=== PATIENT | male | born 1995 | race Caucasian/White ===

== ENCOUNTER 2018-07-24 15:44 | Emergency (ER) | payer OTHER ==
[2018-07-24] MEDS ORDERED: NS(*) 0.9% 1000 ML BAG 1,000 ML IV ONE (15:54)
--- NOTE | 2018-07-24 16:02 | ER Report ---
History and Physical Time Seen By MD: 16:02 HPI/VICKI CHIEF COMPLAINT: Near syncope HISTORY OF PRESENT ILLNESS: 22-year-old male patient presents to emergency room with complaint of near syncope. Patient states that he was working out for basketball. He was working out on a vertical climber and became really lightheaded and fell off of the climber. He states that he did not his head. He denies any loss of consciousness. Patient states that he has not felt well for approximately 7-10 days. He states that he's had no fever, however he is just felt very fatigued and not like himself. He states he is not taking any medication for this. He denies any nausea, vomiting or diarrhea. Patient states that today he has felt the worse. Patient states he does have some head pressure and light sensitivity. REVIEW OF SYSTEMS: Respiratory: No cough, no dyspnea. Cardiovascular: No chest pain, no palpitations. Gastrointestinal: No vomiting, no abdominal pain. Musculoskeletal: No back pain. Allergies: Coded Allergies: No Known Allergies (Verified Allergy, Unknown, 07/24/18) Home Meds Active Scripts Ondansetron 4 Mg Odt (ONDANSETRON 4 MG ODT) 4 Mg Tab.rapdis, 4 MG PO Q6H PRN for NAUSEA/VOMITING, #20 TAB Prov:JOHANNE DIEZ 07/24/18 Ketorolac Tromethamine (KETOROLAC TROMETHAMINE) 10 Mg Tab, 10 MG PO Q6H, #20 TAB Prov:JOHANNE DIEZ 07/24/18 Past Medical/Surgical History Patient denies any pertinent medical or surgical history. Reviewed Nurses Notes: Yes Constitutional Vital Sign - Last 24 Hours 07/24/18 07/24/18 07/24/18 07/24/18 15:44 16:03 16:05 16:11 Temp 98.1 Pulse 55 55 Resp 14 B/P (MAP) 142/89 (106) 142/89 130/83 (99) Pulse Ox 99 99 O2 Delivery Room Air 07/24/18 07/24/18 07/24/18 07/24/18 16:14 16:44 16:49 17:00 Pulse 54 54 53 Resp 15 18 13 B/P (MAP) 133/72 (92) Pulse Ox 97 99 96 07/24/18 07/24/18 07/24/1819 17:19 17:30 17:35 18:00 Pulse 60 55 Resp 16 12 B/P (MAP) 127/62 (83) 124/69 (87) Pulse Ox 93 94 07/24/18 07/24/18 07/24/18 07/24/18 18:10 18:15 18:30 18:35 Pulse 56 54 54 Resp 7 15 15 B/P (MAP) 133/74 (93) Pulse Ox 96 93 95 07/24/18 07/24/18 19:05 19:30 Pulse 50 Resp 10 B/P (MAP) 123/74 (90) Pulse Ox 92 Physical Exam General Appearance: The patient is alert, has no immediate need for airway protection and no current signs of toxicity. Respiratory: Chest is non tender, lungs are clear to auscultation. Cardiac: regular rate and rhythm Gastrointestinal: Abdomen is soft and non tender, no masses, bowel sounds normal. Musculoskeletal: Neck: Neck is supple and non tender. Extremities have full range of motion and are non tender. Skin: No rashes or lesions. DIFFERENTIAL DIAGNOSIS: After history and physical exam differential diagnosis was considered for syncope including but not limited to vasovagal syncope, arrhythmia, dehydration, and blood loss. Included in the differential is migraine. Medical Decision Making Data Points Result Diagram: 07/24/18 1614 07/24/18 1614 Laboratory Hematology Test 07/24/18 00:00 07/24/18 16:14 Amylase Level 47 U/L (0-110) Lipase 55 U/L (23-300) Red Blood Count 5.26 M/uL (4.00-5.60) Mean Corpuscular Volume 86.5 fL (80.0-96.0) Mean Corpuscular Hemoglobin 29.2 pg (26.0-33.0) Mean Corpuscular Hemoglobin Concent 33.7 g/dL (32.0-36.0) Red Cell Distribution Width 12.8 % (11.5-14.5) Mean Platelet Volume 8.4 fL (7.2-11.1) Neutrophils (%) (Auto) 79.1 % (39.4-72.5) Lymphocytes (%) (Auto) 13.0 % (17.6-49.6) Monocytes (%) (Auto) 7.0 % (4.1-12.4) Eosinophils (%) (Auto) 0.6 % (0.4-6.7) Basophils (%) (Auto) 0.3 % (0.3-1.4) Nucleated RBC Relative Count (auto) 0.0 /100WBC Neutrophils # (Auto) 6.3 K/uL (2.0-7.4) Lymphocytes # (Auto) 1.0 K/uL (1.3-3.6) Monocytes # (Auto) 0.6 K/uL (0.3-1.0) Eosinophils # (Auto) 0.0 K/uL (0.0-0.5) Basophils # (Auto) 0.0 K/uL (0.0-0.1) Nucleated RBC Absolute Count (auto) 0.00 K/uL Sodium Level 139 mmol/L (137-145) Potassium Level 4.1 mmol/L (3.5-5.0) Chloride Level 102 mmol/L (98-107) Carbon Dioxide Level 25 mmol/L (22-30) Blood Urea Nitrogen 13 mg/dl (9-21) Creatinine 1.10 mg/dl (0.66-1.25) Glomerular Filtration Rate Calc > 60.0 Random Glucose 86 mg/dl (75-110) Calcium Level 9.6 mg/dl (8.4-10.2) Total Bilirubin 2.0 mg/dl (0.2-1.3) Aspartate Amino Transf (AST/SGOT) 31 U/L (0-35) Alanine Aminotransferase (ALT/SGPT) 29 U/L (0-56) Alkaline Phosphatase 76 U/L (0-126) Troponin I < 0.012 ng/ml Total Protein 7.5 g/dl (6.3-8.2) Albumin 4.9 g/dl (3.5-5.0) Monoscreen Negative (NEGATIVE) Chemistry Test 07/24/18 00:00 07/24/18 16:14 Amylase Level 47 U/L (0-110) Lipase 55 U/L (23-300) White Blood Count 7.9 k/uL (4.5-11.0) Red Blood Count 5.26 M/uL (4.00-5.60) Hemoglobin 15.3 g/dL (14.0-18.0) Hematocrit 45.5 % (42.0-52.0) Mean Corpuscular Volume 86.5 fL (80.0-96.0) Mean Corpuscular Hemoglobin 29.2 pg (26.0-33.0) Mean Corpuscular Hemoglobin Concent 33.7 g/dL (32.0-36.0) Red Cell Distribution Width 12.8 % (11.5-14.5) Platelet Count 252 K/uL (150-450) Mean Platelet Volume 8.4 fL (7.2-11.1) Neutrophils (%) (Auto) 79.1 % (39.4-72.5) Lymphocytes (%) (Auto) 13.0 % (17.6-49.6) Monocytes (%) (Auto) 7.0 % (4.1-12.4) Eosinophils (%) (Auto) 0.6 % (0.4-6.7) Basophils (%) (Auto) 0.3 % (0.3-1.4) Nucleated RBC Relative Count (auto) 0.0 /100WBC Neutrophils # (Auto) 6.3 K/uL (2.0-7.4) Lymphocytes # (Auto) 1.0 K/uL (1.3-3.6) Monocytes # (Auto) 0.6 K/uL (0.3-1.0) Eosinophils # (Auto) 0.0 K/uL (0.0-0.5) Basophils # (Auto) 0.0 K/uL (0.0-0.1) Nucleated RBC Absolute Count (auto) 0.00 K/uL Glomerular Filtration Rate Calc > 60.0 Calcium Level 9.6 mg/dl (8.4-10.2) Total Bilirubin 2.0 mg/dl (0.2-1.3) Aspartate Amino Transf (AST/SGOT) 31 U/L (0-35) Alanine Aminotransferase (ALT/SGPT) 29 U/L (0-56) Alkaline Phosphatase 76 U/L (0-126) Troponin I < 0.012 ng/ml Total Protein 7.5 g/dl (6.3-8.2) Albumin 4.9 g/dl (3.5-5.0) Monoscreen Negative (NEGATIVE) EKG/Imaging EKG Interpretation 12 lead EKG: Rhythm: normal sinus rhythm with a ventricular rate of 66 bpm [place]: normal QRS: normal ST segments: normal Imaging EXAMINATION: Chest 2 Views HISTORY: Syncopal episode. Right upper quadrant pain. COMPARISON: None. FINDINGS: The lungs are clear. No focal consolidation or pleural fluid. No pneumothorax. Normal cardiomediastinal silhouette, with normal heart size and pulmonary vascularity. Visualized osseous structures are unremarkable. IMPRESSION: Negative chest. Report Dictated By: Amos Brian MD at 07/24/2018 5:56 PM Report E-Signed By: Amos Brian MD at 07/24/2018 5:57 PM EXAMINATION: CT abdomen and pelvis with IV contrast HISTORY: Epigastric abdominal pain. TECHNIQUE: Axial CT images of the abdomen and pelvis were obtained with IV contrast, with coronal and sagittal 2D reconstructed images. One of the following dose optimization techniques was utilized in the performance of this exam: Automated exposure control; adjustment of the mA and/or kV according to the patient's size; or use of an iterative reconstruc tion technique. Specific details can be referenced in the facility's radiology CT exam operational policy. Contrast: 75 mL of IV Isovue-370. COMPARISON: None. FINDINGS: Liver: Negative. Gallbladder and bile ducts: Negative. Spleen: Negative. Pancreas: Negative. Adrenal glands: Negative. Kidneys: Negative. No hydronephrosis or urinary calculi. Bowel and peritoneum: The small bowel and colon are normal in caliber, without evidence of obstruction or any focal inflammatory process. The appendix is not well-visualized, but without any suspicious inflammatory changes noted adjacent to the cecal base. Pelvic structures: Negative. Lymph node assessment: Negative. Vessels: Negative. Musculoskeletal: Negative. Body wall: Negative. Lung bases: Negative. IMPRESSION: No CT evidence of acute intra-abdominal pathology. No specific source of abdominal pain is identified. Report Dictated By: Amos Brian MD at 07/24/2018 6:02 PM Report E-Signed By: Amos Brian MD at 07/24/2018 6:[address] OF THE BRAIN WITHOUT CONTRAST HISTORY: Syncope PROCEDURE: 3.0 mm contiguous axial sections were performed through the brain. Sagittal and coronal reformats were submitted. COMPARISON: None FINDINGS: BRAIN: Brain and intracranial structures: There is no mass lesion, hemorrhage or acute infarct. The ventricles are normal in size without midline shift. Sulcal definition is normal, and the basilar cisterns are well defined Orbits (included portions): Normal. Scalp: Normal. Skull: Normal. Paranasal sinuses and mastoid air cells (included portions): Minimal left maxillary mucosal thickening. IMPRESSION: No evidence of acute intracranial abnormality. One of the following dose optimization techniques was utilized in the performance of this exam: Automated exposure control; adjustment of the mA and/or kV according to the patient's size; or use of an iterative reconstruction technique. Specific details can be referenced in the facility's radiology CT exam operational policy. Report Dictated By: Sienna Paz MD at 07/24/2018 4:47 PM Report E-Signed By: Sienna Paz MD at 07/24/2018 4:52 PM ED Course/Re-evaluation ED Course Patient was admitted to an exam room, history and physical were obtained. Differential diagnoses were considered. On examination lungs are clear, heart was regular, abdomen soft nontender. EKG was done which showed a normal sinus rhythm, CBC, CMP, troponin, chest x-ray, CT scan of the head were done. Lab results and imaging results were negative. Patient did have some tenderness to palpation in the epigastric region. With a syncopal episode we did opt to go ahead and do a CT scan of the abdomen and pelvis today show there is no dilation or problems with the descending aorta. The results were negative. I discussed findings with patient. With him having photophobia and head pressure I do have concerns about possible migraine. Patient was treated with 15 mg of Toradol, 30 mg of Norflex, 12.5 mg of Phenergan and 25 mg of Benadryl. On reevaluation patient states that he feels that the head pressure significantly better. He denies any nausea or vomiting. He states he does feel ready to go home and rest. I do have concerns that this could very well be a viral syndrome and would like him to follow-up with [facility] on or Monday this week. Patient verbalized understanding and agreement with plan. Decision to Disposition Date: Jul 24, 2018 Decision to Disposition Time: 19:35 Depart Departure Latest Vital Signs Vital Signs Date Time Temp Pulse Resp B/P (MAP) Pulse Ox O2 Delivery O2 Flow Rate FiO2 07/24/18 19:30 123/74 (90) 07/24/18 19:05 50 10 92 07/24/18 16:05 98.1 Room Air Impression: Primary Impression: Migraine Additional Impression: Viral syndrome Condition: Improved Disposition: HOME OR SELF-CARE New Scripts Ondansetron 4 Mg Odt (ONDANSETRON 4 MG ODT) 4 Mg Tab.rapdis 4 MG PO Q6H PRN for NAUSEA/VOMITING, #20 TAB Prov: JOHANNE DIEZ 07/24/18 Ketorolac Tromethamine (KETOROLAC TROMETHAMINE) 10 Mg Tab 10 MG PO Q6H, #20 TAB Prov: JOHANNE DIEZ 07/24/18 Patient Instructions: Migraine Headache (ED) Additional Instructions: Increase fluid intake. Get plenty of rest. Follow up with [facility] on or Monday this week. Return to the ER if condition worsens. Be careful with workouts for basketball, pay attention to how you are feeling and stop if you are feeling lightheaded or short of breath. Problem Qualifiers Primary Impression: Migraine Migraine type: without aura Status migrainosus presence: without status migrainosus Intractability: not intractable Qualified Codes: G43.009 - Migraine without aura, not intractable, without status migrainosus JOHANNE DIEZ Jul 24, 2018 16:02
--- NOTE | 2018-07-24 16:11 | EKG ---
FACILITY: [facility] PATIENT NAME: NEHA WHITTAKER : [id number] MR: [id number] V: [id number] EXAM DATE: ORDERING PHYSICIAN: JOHANNE DIEZ TECHNOLOGIST: JASBIR Mcdonnell Reason : SYNCOPE Blood Pressure : / mmHG Vent. Rate : 066 BPM Atrial Rate : 066 BPM P-R Int : 156 ms QRS Dur : 092 ms QT Int : 398 ms P-R-T Axes : 064 061 036 degrees QTc Int : 417 ms Normal sinus rhythm Normal ECG Hyperacute T wave No previous ECGs available Confirmed by Abhilash Broussard ([id number]) on 07/24/2018 10:11:59 PM Referred By: CHARY Confirmed By:Abhilash Lynne
[2018-07-24 16:28] LABS: PLATELET COUNT, AUTOMATED 252 K/uL (150-450)
--- NOTE | 2018-07-24 16:56 | RADIOLOGY IMAGING REPORT ---
[place] [facility] [place] NAME: Feliz Watt : 1995 MR: [id number] V: [id number] EXAM DATE: ORDERING PHYSICIAN: JOHANNE DIEZ TECHNOLOGIST: [place] [facility] [place] Feliz Watt : 1995 Visit/Account:[id number] Date of Sevice: 07/24/2018 CT OF THE BRAIN WITHOUT CONTRAST HISTORY: Syncope PROCEDURE: 3.0 mm contiguous axial sections were performed through the brain. Sagittal and coronal r eformats were submitted. COMPARISON: None FINDINGS: BRAIN: Brain and intracranial structures: There is no mass lesion, hemorrhage or acute infarct. The ventric les are normal in size without midline shift. Sulcal definition is normal, and the basilar cisterns are well defined Orbits (included portions): Normal. Scalp: Normal. Skull: Normal. Paranasal sinuses and mastoid air cells (included portions): Minimal left maxillary mucosal thickenin g. IMPRESSION: No evidence of acute intracranial abnormality. One of the following dose optimization techniques was utilized in the performance of this exam: Autom ated exposure control; adjustment of the mA and/or kV according to the patient's size; or use of an i terative reconstruction technique. Specific details can be referenced in the facility's radiology C T exam operational policy. Report Dictated By: Sienna Paz MD at 07/24/2018 4:47 PM Report E-Signed By: Sienna Paz MD at 07/24/2018 4:52 PM WSN:[id number]
[2018-07-24] MEDS ORDERED: IOPAMIDOL 76% 150 ML INFUS BTL 150 ML ONE (17:43)
--- NOTE | 2018-07-24 18:01 | RADIOLOGY IMAGING REPORT ---
[place] [facility] [place] Feliz Watt : 1995 MR: [id number] V: [id number] EXAM DATE: ORDERING PHYSICIAN: JOHANNE DIEZ TECHNOLOGIST: Location: [facility] Patient: Feliz Watt : 1995 Visit/Account:[id number] Date of Sevice: 07/24/2018 EXAMINATION: Chest 2 Views HISTORY: Syncopal episode. Right upper quadrant pain. COMPARISON: None. FINDINGS: The lungs are clear. No focal consolidation or pleural fluid. No pneumothorax. Normal cardiomediastinal silhouette, with normal heart size and pulmonary vascularity. Visualized osseous structures are unremarkable. IMPRESSION: Negative chest. Report Dictated By: Amos Brian MD at 07/24/2018 5:56 PM Report E-Signed By: Amos Brian MD at 07/24/2018 5:57 PM WSN:[id number]
--- NOTE | 2018-07-24 18:12 | RADIOLOGY IMAGING REPORT ---
FACILITY: [facility] PATIENT NAME: Feliz Watt : 1995 MR: [id number] V: [id number] EXAM DATE: ORDERING PHYSICIAN: JOHANNE DIEZ TECHNOLOGIST: Location: [facility] [place] Patient: Feliz Watt : 1995 Visit/Account:[id number] Date of Sevice: 07/24/2018 EXAMINATION: CT abdomen and pelvis with IV contrast HISTORY: Epigastric abdominal pain. TECHNIQUE: Axial CT images of the abdomen and pelvis were obtained with IV contrast, with coronal a nd sagittal 2D reconstructed images. One of the following dose optimization techniques was utilized in the performance of this exam: Autom ated exposure control; adjustment of the mA and/or kV according to the patient's size; or use of an i terative reconstruction technique. Specific details can be referenced in the facility's radiology C T exam operational policy. Contrast: 75 mL of IV Isovue-370. COMPARISON: None. FINDINGS: Liver: Negative. Gallbladder and bile ducts: Negative. Spleen: Negative. Pancreas: Negative. Adrenal glands: Negative. Kidneys: Negative. No hydronephrosis or urinary calculi. Bowel and peritoneum: The small bowel and colon are normal in caliber, without evidence of obstructi on or any focal inflammatory process. The appendix is not well-visualized, but without any suspicious inflammatory changes noted adjacent to the cecal base. Pelvic structures: Negative. Lymph node assessment: Negative. Vessels: Negative. Musculoskeletal: Negative. Body wall: Negative. Lung bases: Negative. IMPRESSION: No CT evidence of acute intra-abdominal pathology. No specific source of abdominal pain is identified . Report Dictated By: Amos Brian MD at 07/24/2018 6:02 PM Report E-Signed By: Amos Brian MD at 07/24/2018 6:09 PM WSN:[id number]
[2018-07-24] MEDS ORDERED: KETOROLAC 15 MG/ML VIAL IVP ONE (18:45)
[2018-07-24] MEDS ORDERED: PROMETHAZINE 25 MG/ML 1 ML AMP IVP ONE (18:45)
[2018-07-24] MEDS ORDERED: ORPHENADRINE 60MG/2ML INJ IVP ONE (18:45)
[2018-07-24] MEDS ORDERED: diphenhydrAMINE 50 MG/ML VIAL IVP ONE (18:45)
[2018-07-24 19:30] VITALS: BP 123/74
[2018-07-24] MEDS ORDERED: KET10 PO (19:38)
[2018-07-24] MEDS ORDERED: ONDA4TAB9 PO (19:38)
== END 2018-07-24 19:47 | disposition home or self-care (01) ==
LOC: ER 16:19
DX: G43.009 Migraine without aura, not intractable, without status migrainosus (principal); B34.9 Viral infection, unspecified
CPT/HCPCS: 70450; 71046; 74177; 82150; 83690; 84484; 85025; 86308; 93005; 96361; 96374; 96375; 99284; J1200; J1885; J2360; J2550; J7030; Q9967; 82040; 82247; 82310; 82374; 82435; 82565; 82947; 84075; 84132; 84155; 84295; 84450; 84460; 84520

== ENCOUNTER → 2018-08-07 | Outpatient (CLI) | payer OTHER ==
[~2018-08-07] MED LIST: GADOBENATE 529MG/1ML 15ML VIAL IVP ONE; KET10 PO; ONDA4TAB9 PO
--- NOTE | 2018-08-07 12:53 | RADIOLOGY IMAGING REPORT ---
FACILITY: [facility] [place] PATIENT NAME: Feliz Watt : 1995 MR: [id number] V: [id number] EXAM DATE: ORDERING PHYSICIAN: VILMA WEEKS TECHNOLOGIST: Location: [facility] Patient: Feliz Watt : 1995 Visit/Account:[id number] Date of Sevice: 08/07/2018 Examination: MR brain without and with contrast History: Headaches, dizziness Comparison: Head CT July 24, 2018 Technique: Multiplane MR imaging was performed through the brain without and with contrast. 15 cc IV multihance was administered. Findings: Diffusion: None Ventricles: Normal Midline shift: None Extraxial fluid: None Midline craniocervical structures: Normal Parenchyma: Normal Enhancement: No pathologic enhancement Vascular flow voids: Normal Orbits and paranasal sinuses: 1 cm left maxillary sinus mucous retention cyst. Other: No significant additional finding. Impression: Normal brain MR without and with contrast. Report Dictated By: Luan Roberts MD at 08/07/2018 12:43 PM Report E-Signed By: Luan Roberts MD at 08/07/2018 12:48 PM WSN:[id number]
== END ==
LOC: MRI 01:11
PROVIDERS: ATTEND Emergency Medicine Sports Medicine
DX: J34.1 Cyst and mucocele of nose and nasal sinus (principal)
CPT/HCPCS: 70553; A9577

== ENCOUNTER → 2018-08-22 | Outpatient (CLI) | payer OTHER ==
[~2018-08-22] MED LIST changes: -GADOBENATE 529MG/1ML 15ML VIAL IVP ONE
--- NOTE | 2018-08-22 15:06 | RADIOLOGY IMAGING REPORT ---
FACILITY: [facility] PATIENT NAME: Feliz Watt : 1995 MR: [id number] V: [id number] EXAM DATE: ORDERING PHYSICIAN: MARTHA ORTEGA TECHNOLOGIST: Location: [facility] Patient: Feliz Watt : 1995 Visit/Account:[id number] Date of Sevice: 08/22/2018 MR SPINE CERVICAL W/O CON COMPARISON: None Additional pertinent history: Neck pain and stiffness Technique: Multiplanar multisequence cervical spine MRI was performed without gadolinium enhancement. FINDINGS: Vertebral body height and alignment: Negative Vertebral marrow signal: Negative Vertebral bodies: Negative Cervical spinal cord signal, craniocervical junction and visualized posterior fossa: Negative Surrounding soft tissues: Negative Inspection of the disc spaces reveal the following: C1-C2: Negative C2-C3: Minimal circumferential disc bulging with facet hypertrophic changes. No canal stenosis. Mil d left-sided neural foraminal narrowing. No significant right-sided neural foraminal narrowing. C3-C4: Posterior broad-based disc protrusion with facet hypertrophic changes. Moderate left-sided ne ural foraminal narrowing. No significant right-sided neural foraminal narrowing. No canal stenosis. C4-C5: Posterior broad-based disc protrusion with facet hypertrophic changes. No significant canal o r neural foraminal narrowing. C5-C6: Posterior broad-based disc protrusion with facet and uncovertebral degenerative changes. Mode rate bilateral neural foraminal narrowing without canal stenosis. C6-C7: Circumferential disc bulging with facet hypertrophic changes. No significant canal or neural foraminal narrowing. C7-T1: Negative Impression: 1. Multilevel spondylitic change as discussed above. 2. Findings contribute to moderate bilateral neural foraminal narrowing at C5-C6. 3. No underlying canal stenosis. Report Dictated By: Gilbert Lantigua MD at 08/22/2018 2:37 PM Report E-Signed By: Gilbert Lantigua MD at 08/22/2018 3:02 PM WSN:[id number]
== END ==
LOC: MRI 00:58
PROVIDERS: ATTEND Psychiatry & Neurology Neurology
DX: M47.892 Other spondylosis, cervical region (principal)
CPT/HCPCS: 72141